=== PATIENT | female | born 1985 | race Caucasian/White ===

== ENCOUNTER 2020-03-04 02:12 | Observation (INO) ==
[2020-03-04] MEDS ORDERED: GI Cocktail 40 ML EACH PO ONE (02:22)
[2020-03-04 02:49] LABS: Bilirubin,Urine Negative (Negative); Blood,Urine Negative (Negative); Clarity,Urine Clear (Clear); Color,Urine Light-Yellow (Yellow); Glucose,Urine (UA) Normal (Normal); Ketones,Urine Negative (Negative); Leukocyte Esterase,Urine Negative (Negative); Nitrite,Urine Negative (Negative); PH,Urine 5.5 pH Units (5.0-8.0); Protein,Urine Negative (Neg-Trace); Specific Gravity,Urine 1.028 (1.010-1.025); Urobilinogen,Urine Normal (Normal)
[2020-03-04 03:01] LABS: Basophils # 0.1 K/mcL (0.0-0.2); Eosinophils # 0.5 K/mcL (0.0-0.6); Eosinophils % 4.9 %; Hematocrit 39.1 % (35.3-44.9); Hemoglobin 12.3 g/dL (11.5-15.4); Immature Granulocytes % 0.3 % (0-4); Lymphocytes % 21.3 %; Mean Corpuscular HGB Conc 31.5 g/dL (31.6-35.5); Mean Corpuscular Hemoglobin 27.6 pg (28.0-33.3); Mean Corpuscular Volume 87.9 fL (83.0-100.0); Mean Platelet Volume 9.3 fL (9.4-12.4); Monocytes # 0.7 K/mcL (0.0-1.3); Monocytes % 7.7 %; Neutrophils # 6.1 K/mcL (1.6-8.9); Platelet Count 330 K/mcL (140-400); Red Blood Count 4.45 M/mcL (3.82-4.97); Segmented Neutrophils % 64.8 %; White Blood Count 9.4 K/mcL (4.3-11.1)
[2020-03-04] MEDS ORDERED: Ondansetron 4 MG/2 ML VIAL IVP ONE ×2 (03:09→06:26)
[2020-03-04 03:23] LABS: Alanine Aminotransferase 14 Units/L (7-52); Albumin 4.4 g/dL (3.5-5.7); Albumin/Globulin Ratio 1.8 (1.1-2.2); Alkaline Phosphatase 41 Units/L (34-104); Amylase 27 Units/L (29-103); Aspartate Amino Transferase 11 Units/L (13-39); BUN/Creatinine Ratio 27 (6-26); Bilirubin,Direct 0.1 mg/dL (0.0-0.2); Bilirubin,Indirect 0.2 mg/dL (0.0-1.0); Bilirubin,Total 0.3 mg/dL (0.3-1.0); Blood Urea Nitrogen 20 mg/dL (6-20); Calcium 9.7 mg/dL (8.6-10.3); Carbon Dioxide 24 mEq/L (23-29); Chloride 108 mEq/L (98-107); Globulin 2.5 g/dL (2.4-3.5); Glucose 103 mg/dL (70-105); Lipase 16 Units/L (11-82); Osmolality,Calculated 291 (280-300); Potassium 3.7 mEq/L (3.5-5.1); Sodium 139 mEq/L (136-145); Total Protein 6.9 g/dL (6.4-8.9); Troponin I < 0.03 ng/mL (< 0.04); eGFR For African Americans > 60 (> 60); eGFR For Non-African Americans > 60 (> 60)
[2020-03-04] MEDS ORDERED: *HR* FentaNYL (PF) 100 MCG/2 ML VIAL IVP ONE (03:28)
[2020-03-04] MEDS ORDERED: Morphine Sulfate 2 MG/ML SYRINGE IVP ONE (06:26)
[2020-03-04] MEDS ORDERED: 0.9 % Sodium Chloride 1,000 ML ONE (06:35)
[2020-03-04] MEDS: 0.9 % Sodium Chloride 1,000 ML IVC SCH ×4 (06:40→20:33)
[2020-03-04] MEDS ORDERED: Ondansetron 4 MG/2 ML VIAL IVP PRN ×2 (08:25→16:27)
[2020-03-04] MEDS ORDERED: Piperacillin/Tazobactam 3.375 GM in 0.9 % Sodium Chloride Mini Bag 100 ML IVPB SCH (08:26)
[2020-03-04] MEDS ORDERED: Loratadine 10 MG TABLET PO ONE (08:54)
[2020-03-04] MEDS ORDERED: Ipratropium/Albuterol Neb 3 ML IH ONE (08:57)
[2020-03-04] MEDS ORDERED: Pantoprazole 40 MG VIAL IVP SCH (09:00)
[2020-03-04 10:28] LABS: Adenovirus Not Detected (Not Detect); Bordetella Pertussis Not Detected (Not Detect); Chlamydophila pneumoniae Not Detected (Not Detect); Coronavirus 229E Not Detected (Not Detect); Coronavirus HKU1 Not Detected (Not Detect); Coronavirus NL63 Not Detected (Not Detect); Coronavirus OC43 Not Detected (Not Detect); Human Metapneumovirus Not Detected (Not Detect); Human Rhinovirus/Enterovirus Not Detected (Not Detect); Influenza A Subtype 2009 H1 Not Detected (Not Detect); Influenza B Not Detected (Not Detect); Mycoplasma pneumoniae Not Detected (Not Detect); Parainfluenza Virus 1 Not Detected (Not Detect); Parainfluenza Virus 2 Not Detected (Not Detect); Parainfluenza Virus 3 Not Detected (Not Detect); Parainfluenza Virus 4 Not Detected (Not Detect); Respiratory Syncytial Virus Not Detected (Not Detect); SARS-CoV-2 Not Detected (Not Detect)
[2020-03-04] MEDS ORDERED: Ondansetron 4 MG/2 ML VIAL ONE (15:26)
[2020-03-04] MEDS ORDERED: Lidocaine -MPF 2% 2 ML VIAL ONE (15:26)
[2020-03-04] MEDS ORDERED: *HR* FentaNYL (PF) 100 MCG/2 ML VIAL ONE (15:26)
[2020-03-04] MEDS ORDERED: Dexamethasone 4 MG/ML VIAL ONE (15:26)
[2020-03-04] MEDS ORDERED: *HR* Midazolam HCl 2 MG/2 ML VIAL ONE (15:26)
[2020-03-04] MEDS ORDERED: *HR* Propofol 200 MG/20 ML VIAL IVP ONE (15:26)
[2020-03-04] MEDS ORDERED: *HR* Rocuronium Bromide 50 MG/5 ML VIAL ONE (15:26)
[2020-03-04] MEDS ORDERED: *HR* HYDROMORPHONE 2 MG/ML VIAL ONE (15:41)
[2020-03-04] MEDS ORDERED: Ketorolac 30 MG/ML VIAL ONE (16:01)
[2020-03-04] MEDS ORDERED: Albuterol 2.5 MG/3 ML NEBULIZER ONE (16:25)
[2020-03-04] MEDS ORDERED: Promethazine 6.25 MG in Water for inj. (sterile) 20 ML IVPB PRN (16:27)
[2020-03-04] MEDS ORDERED: Albuterol 2.5 MG/3 ML NEBULIZER IH PRN (16:27)
[2020-03-04] MEDS ORDERED: *HR* HYDROmorphone PF 0.5 MG/0.5 ML SYRINGE IVP PRN (16:27)
[2020-03-04] MEDS: Piperacillin/Tazobactam 3.375 GM in 0.9 % Sodium Chloride Mini Bag 100 ML IVPB SCH (17:43)
[2020-03-04] MEDS: Ondansetron 4 MG/2 ML VIAL IVP PRN (19:53)
[2020-03-05] MEDS: Ondansetron 4 MG/2 ML VIAL IVP PRN (00:16)
[2020-03-05] MEDS: Piperacillin/Tazobactam 3.375 GM in 0.9 % Sodium Chloride Mini Bag 100 ML IVPB SCH ×2 (00:30→08:25)
[2020-03-05] MEDS ORDERED: Ondansetron 4 MG/2 ML VIAL IVP PRN (00:58)
[2020-03-05] MEDS: 0.9 % Sodium Chloride 1,000 ML IVC SCH (06:16)
[2020-03-05 06:56] VITALS: BP 117/66
[2020-03-05 08:02] LABS: Hematocrit 35.2 % (35.3-44.9); Hemoglobin 11.1 g/dL (11.5-15.4); Mean Corpuscular HGB Conc 31.5 g/dL (31.6-35.5); Mean Corpuscular Hemoglobin 27.5 pg (28.0-33.3); Mean Corpuscular Volume 87.1 fL (83.0-100.0); Mean Platelet Volume 9.5 fL (9.4-12.4); Platelet Count 303 K/mcL (140-400); Red Blood Count 4.04 M/mcL (3.82-4.97); Red Cell Distribution Width 12.8 % (11.5-14.5)
[2020-03-05 08:05] LABS: White Blood Count 15.9 K/mcL (4.3-11.1)
[2020-03-05] MEDS ORDERED: Pantoprazole 40 MG VIAL IVP SCH (09:00)
== END 2020-03-05 10:26 | disposition home or self-care (01) ==
LOC: 3BNU 02:12 → EMEROOARM 02:12 → 3BNU 11:13
PROVIDERS: ADMIT Surgery; ATTEND Surgery

== ENCOUNTER → 2020-10-10 17:22 | Observation (INO) ==
[2020-10-10 16:23] LABS: Basophils # 0.1 K/mcL (0.0-0.2); Basophils % 0.3 %; Eosinophils # 0.4 K/mcL (0.0-0.6); Eosinophils % 2.6 %; Hematocrit 32.2 % (35.3-44.9); Hemoglobin 10.6 g/dL (11.5-15.4); Immature Granulocytes % 0.7 % (0-4); Lymphocytes # 1.7 K/mcL (0.6-4.6); Lymphocytes % 11.1 %; Mean Corpuscular HGB Conc 32.9 g/dL (31.6-35.5); Mean Corpuscular Hemoglobin 29.4 pg (28.0-33.3); Mean Corpuscular Volume 89.4 fL (83.0-100.0); Mean Platelet Volume 9.5 fL (9.4-12.4); Monocytes # 1.1 K/mcL (0.0-1.3); Monocytes % 7.1 %; Neutrophils # 11.7 K/mcL (1.6-8.9); Platelet Count 273 K/mcL (140-400); Red Cell Distribution Width 13.2 % (11.5-14.5); Segmented Neutrophils % 78.2 %; White Blood Count 14.9 K/mcL (4.3-11.1)
[2020-10-10 16:28] LABS: Protein/Creatinine Ratio,Urine 0.17 mg/mg (0.00-0.20)
[2020-10-10 16:34] LABS: Bacteria,Urine Few per hpf (None-Few); Bilirubin,Urine Negative (Negative); Blood,Urine Negative (Negative); Clarity,Urine Turbid (Clear); Color,Urine Yellow (Yellow); Glucose,Urine (UA) Normal (Normal); Ketones,Urine Trace mg/dL (Negative); Leukocyte Esterase,Urine Large (Negative); Mucus,Urine Few per lpf (None-Few); Nitrite,Urine Negative (Negative); PH,Urine 5.5 pH Units (5.0-8.0); Protein,Urine 30 mg/dL (Neg-Trace); Specific Gravity,Urine 1.029 (1.010-1.025); Squamous Epithelial Cell,Urine Many per hpf (None-Few); Urobilinogen,Urine Normal (Normal); WBC,Urine 30-50 per hpf (0-3)
[2020-10-10 16:45] LABS: Alanine Aminotransferase 13 Units/L (7-52); Aspartate Amino Transferase 11 Units/L (13-39); BUN/Creatinine Ratio 22 (6-26); Blood Urea Nitrogen 11 mg/dL (6-20); Lactate Dehydrogenase 134 Units/L (140-271); Uric Acid 4.5 mg/dL (2.3-7.6); eGFR For African Americans > 60 (> 60); eGFR For Non-African Americans > 60 (> 60)
== END | disposition home or self-care (01) ==
LOC: 1NENULAB
PROVIDERS: ADMIT Obstetrics & Gynecology; ATTEND Obstetrics & Gynecology

== ENCOUNTER → 2020-11-12 11:30 | Observation (INO) ==
[~2020-11-12 11:30] MED LIST: Betamethasone Acet/SodPhos 30 MG/5 ML VIAL IM SCH
== END | disposition home or self-care (01) ==
LOC: 1NENULAB
PROVIDERS: ADMIT Student in an Organized Health Care Education/Training Program; ATTEND Student in an Organized Health Care Education/Training Program

== ENCOUNTER → 2020-11-13 12:05 | Observation (INO) ==
[2020-11-13 12:13] VITALS: BP 135/81; PULSE 92; TEMP 98
== END | disposition home or self-care (01) ==
LOC: 1NENULAB
PROVIDERS: ADMIT Registered Nurse; ATTEND Registered Nurse

== ENCOUNTER → 2020-11-15 23:52 | Observation (INO) ==
[2020-11-15 20:37] LABS: Basophils # 0.1 K/mcL (0.0-0.2); Basophils % 0.3 %; Eosinophils % 0.2 %; Hematocrit 30.9 % (35.3-44.9); Hemoglobin 9.9 g/dL (11.5-15.4); Immature Granulocytes % 4.8 % (0-4); Lymphocytes # 1.7 K/mcL (0.6-4.6); Lymphocytes % 9.4 %; Mean Corpuscular Hemoglobin 28.2 pg (28.0-33.3); Mean Platelet Volume 9.7 fL (9.4-12.4); Monocytes # 1.6 K/mcL (0.0-1.3); Monocytes % 9.1 %; Neutrophils # 13.4 K/mcL (1.6-8.9); Nucleated Red Blood Cells 0.3 /100 WBC (0); Platelet Count 297 K/mcL (140-400); Red Blood Count 3.51 M/mcL (3.82-4.97); Red Cell Distribution Width 13.4 % (11.5-14.5); Segmented Neutrophils % 76.2 %; White Blood Count 17.6 K/mcL (4.3-11.1)
[2020-11-15 20:46] LABS: Protein/Creatinine Ratio,Urine 0.17 mg/mg (0.00-0.20)
[2020-11-15 20:51] LABS: Bacteria,Urine Few per hpf (None-Few); Bilirubin,Urine Negative (Negative); Blood,Urine Negative (Negative); Clarity,Urine Clear (Clear); Color,Urine Light-Yellow (Yellow); Glucose,Urine (UA) Normal (Normal); Ketones,Urine Negative (Negative); Leukocyte Esterase,Urine Moderate (Negative); Mucus,Urine Few per lpf (None-Few); Nitrite,Urine Negative (Negative); Protein,Urine 30 mg/dL (Neg-Trace); RBC,Urine 0-3 per hpf (0-3); Specific Gravity,Urine > 1.030 (1.010-1.025); Squamous Epithelial Cell,Urine Few per hpf (None-Few); Urobilinogen,Urine Normal (Normal)
[2020-11-15 20:58] LABS: Alanine Aminotransferase 12 Units/L (7-52); Aspartate Amino Transferase 11 Units/L (13-39); BUN/Creatinine Ratio 25 (6-26); Blood Urea Nitrogen 15 mg/dL (6-20); Lactate Dehydrogenase 161 Units/L (140-271); Uric Acid 4.9 mg/dL (2.3-7.6); eGFR For African Americans > 60 (> 60); eGFR For Non-African Americans > 60 (> 60)
[~2020-11-15 23:52] MED LIST changes: -Betamethasone Acet/SodPhos 30 MG/5 ML VIAL IM SCH; +Ringers Solution, Lactated 1,000 ML IVC ONE; +Ringers Solution, Lactated 1,000 ML ONE
== END | disposition home or self-care (01) ==
LOC: 1NENULAB
PROVIDERS: ADMIT Advanced Practice Midwife; ATTEND Advanced Practice Midwife

== ENCOUNTER 2020-12-08 13:12 | Inpatient (IN) ==
[~2020-12-08 13:12] MED LIST changes: +*HR* Nalbuphine 10 MG/ML AMPUL IV PRN; +Azithromycin 500 MG in 0.9 % Sodium Chloride 250 ML IVPB PRN; +Famotidine 20 MG/2 ML VIAL IVP PRN; +Lidocaine 1% 20 ML MDV INFILT PRN; +Metoclopramide 10 MG/2 ML VIAL IVP PRN; +Naloxone 0.4 MG/ML INJ IVP PRN; +Ondansetron 4 MG/2 ML VIAL IVP PRN; -Ringers Solution, Lactated 1,000 ML IVC ONE; -Ringers Solution, Lactated 1,000 ML ONE
[2020-12-08] MEDS ORDERED: Ringers Solution, Lactated 1,000 ML IVC SCH (13:15)
[2020-12-08] MEDS ORDERED: NIFEdipine Immed Rel 10 MG CAPSULE PO ONE (13:16)
[2020-12-08] MEDS ORDERED: NIFEdipine Immed Rel 10 MG CAPSULE PO PRN (13:16)
[2020-12-08 13:55] LABS: Basophils % 0.4 %; Eosinophils # 0.2 K/mcL (0.0-0.6); Eosinophils % 1.4 %; Hematocrit 33.2 % (35.3-44.9); Hemoglobin 10.2 g/dL (11.5-15.4); Immature Granulocytes % 1.3 % (0-4); Lymphocytes # 1.5 K/mcL (0.6-4.6); Lymphocytes % 13.4 %; Mean Corpuscular HGB Conc 30.7 g/dL (31.6-35.5); Mean Corpuscular Hemoglobin 26.7 pg (28.0-33.3); Mean Corpuscular Volume 86.9 fL (83.0-100.0); Mean Platelet Volume 9.5 fL (9.4-12.4); Monocytes # 0.8 K/mcL (0.0-1.3); Monocytes % 6.9 %; Neutrophils # 8.3 K/mcL (1.6-8.9); Nucleated Red Blood Cells 0.2 /100 WBC (0); Platelet Count 286 K/mcL (140-400); Red Blood Count 3.82 M/mcL (3.82-4.97); Red Cell Distribution Width 14.2 % (11.5-14.5); Segmented Neutrophils % 76.6 %; White Blood Count 10.8 K/mcL (4.3-11.1)
[2020-12-08] MEDS ORDERED: FLU Vac QV 21-22 (6Month+)/PF 0.5 ML SYRINGE IM ONE (14:22)
[2020-12-08] MEDS ORDERED: Penicillin G Potassium 5,000,000 UNIT in 0.9 % Sodium Chloride Mini Bag 100 ML IVPB ONE (14:25)
[2020-12-08 14:32] LABS: Amphetamine Screen,Urine Negative ng/mL (Cutoff=1000); Barbiturate Screen,Urine Negative ng/mL (Cutoff=200); Benzodiazepines Screen,Urine Negative ng/mL (Cutoff=200); Cannabinoid Screen,Urine Negative ng/mL (Cutoff = 50); Cocaine Screen,Urine Negative ng/mL (Cutoff= 300); Creatinine,Urine 267 mg/dL; Opiate Screen,Urine Negative ng/mL (Cutoff=300); Phencyclidine Screen,Urine Negative ng/mL (Cutoff=25); Protein/Creatinine Ratio,Urine 0.61 mg/mg (0.00-0.20)
[2020-12-08] MEDS ORDERED: miSOPROStoL 25 MCG TABLET PO SCH (16:00)
[2020-12-08 16:14] LABS: Influenza A PCR Negative (Negative); Influenza B PCR Negative (Negative); Resp. Syncytial Virus PCR Negative (Negative)
[2020-12-08 16:15] LABS: SARS-CoV-2 by PCR (In House) Negative (Negative)
[2020-12-08] MEDS ORDERED: Acetaminophen 325 MG TABLET PO ONE (17:11)
[2020-12-08 17:18] LABS: Alanine Aminotransferase 11 Units/L (7-52); Aspartate Amino Transferase 15 Units/L (13-39); BUN/Creatinine Ratio 25 (6-26); Blood Urea Nitrogen 16 mg/dL (6-20); Lactate Dehydrogenase 227 Units/L (140-271); Uric Acid 6.1 mg/dL (2.3-7.6); eGFR For African Americans > 60 (> 60); eGFR For Non-African Americans > 60 (> 60)
[2020-12-08] MEDS ORDERED: Penicillin G Potassium 2,500,000 UNIT in 0.9 % Sodium Chloride 100 ML IVPB SCH (18:30)
[2020-12-08] MEDS ORDERED: Oxytocin 20 units/ LR 1000 mL 20 UNIT/1,000 ML BAG IVC SCH (19:45)
[2020-12-08] MEDS ORDERED: *HR* FentaNYL (PF) 100 MCG/2 ML VIAL EP ONE (22:04)
[2020-12-08] MEDS ORDERED: EPHEDrine 50 MG/ML VIAL IVP PRN (22:04)
[2020-12-08] MEDS ORDERED: Ropivacaine/PF 0.2% 20 ML VIAL EP ONE (22:04)
[2020-12-08] MEDS ORDERED: Ropivacaine/PF 0.2% 20 ML VIAL ONE (22:09)
[2020-12-08] MEDS ORDERED: *HR* FentaNYL (PF) 100 MCG/2 ML VIAL ONE (22:09)
[2020-12-08] MEDS ORDERED: Epidural Premix (fent/bupiv) 110 ML EP SCH (22:15)
[2020-12-08] MEDS ORDERED: *HR* Labetalol 20 MG/4 ML SYRINGE IVP ONE (22:53)
[2020-12-09] MEDS ORDERED: Oxytocin 20 units/ LR 1000 mL 20 UNIT/1,000 ML BAG IVC SCH (04:11)
[2020-12-09] MEDS ORDERED: Lanolin 7 G OINT...G. TP PRN (04:11)
[2020-12-09] MEDS ORDERED: Measles/Mumps/Rubella Vacc 0.5 ML VIAL SQ PRN (04:11)
[2020-12-09] MEDS ORDERED: Benzocaine/Menthol 56 GM AEROSOL SPRAY TP PRN (04:11)
[2020-12-09] MEDS ORDERED: Ondansetron ODT 4 MG TAB.RAPDIS SL PRN (04:11)
[2020-12-09] MEDS: Ibuprofen 600 MG TABLET PO SCH ×3 (04:21→18:17)
[2020-12-09] MEDS: Acetaminophen 325 MG TABLET PO SCH ×3 (07:21→21:16)
[2020-12-09] MEDS: Loratadine 10 MG TABLET PO SCH (08:03)
[2020-12-09] MEDS: Budesonide/Formoterol 160/4.5 1 PUFF INH IH SCH (08:04)
[2020-12-09] MEDS: Prenatal Vit/FA 1 EACH TABLET PO SCH (12:12)
[2020-12-10] MEDS: Ibuprofen 600 MG TABLET PO SCH ×4 (01:28→20:39)
[2020-12-10] MEDS: Acetaminophen 325 MG TABLET PO SCH ×3 (04:21→17:41)
[2020-12-10 04:57] LABS: Basophils % 0.4 %; Eosinophils # 0.2 K/mcL (0.0-0.6); Eosinophils % 1.5 %; Hematocrit 29.1 % (35.3-44.9); Hemoglobin 9.1 g/dL (11.5-15.4); Immature Granulocytes % 0.8 % (0-4); Lymphocytes # 1.8 K/mcL (0.6-4.6); Lymphocytes % 15.9 %; Mean Corpuscular HGB Conc 31.3 g/dL (31.6-35.5); Mean Corpuscular Volume 86.4 fL (83.0-100.0); Mean Platelet Volume 9.3 fL (9.4-12.4); Monocytes # 0.7 K/mcL (0.0-1.3); Monocytes % 6.6 %; Neutrophils # 8.2 K/mcL (1.6-8.9); Platelet Count 214 K/mcL (140-400); Red Blood Count 3.37 M/mcL (3.82-4.97); Red Cell Distribution Width 14.6 % (11.5-14.5); Segmented Neutrophils % 74.8 %
[2020-12-10] MEDS: Prenatal Vit/FA 1 EACH TABLET PO SCH (09:07)
[2020-12-10] MEDS: Loratadine 10 MG TABLET PO SCH (09:07)
[2020-12-10] MEDS: Budesonide/Formoterol 160/4.5 1 PUFF INH IH SCH (10:00)
[2020-12-10] MEDS ORDERED: NIFEdipine XL (24 HR) 30 MG TAB.ER.24 PO SCH (12:30)
[2020-12-11] MEDS: Ibuprofen 600 MG TABLET PO SCH (04:03)
[2020-12-11] MEDS: Loratadine 10 MG TABLET PO SCH (08:16)
[2020-12-11] MEDS: Prenatal Vit/FA 1 EACH TABLET PO SCH (08:16)
[2020-12-11 08:34] VITALS: PULSE 97
[2020-12-11 08:41] VITALS: BP 139/85; TEMP 98.5; O2SAT 98
[2020-12-11] MEDS ORDERED: FLU Vac QV 21-22 (6Month+)/PF 0.5 ML SYRINGE IM ONE (13:15)
== END 2020-12-11 14:43 | disposition home or self-care (01) | DRG 807 ==
LOC: 1NENULAB → SUATTDRO 13:12 → 1NENULAB 16:13 → 1NENUOBS 12-09 04:06
PROVIDERS: ADMIT Obstetrics & Gynecology; ATTEND Internal Medicine

== ENCOUNTER 2020-12-13 13:56 | Observation (INO) ==
[2020-12-13] MEDS ORDERED: 0.9 % Sodium Chloride 1,000 ML IVC ONE (14:23)
[2020-12-13] MEDS ORDERED: *HR* Labetalol 20 MG/4 ML SYRINGE IVP ONE (14:25)
[2020-12-13 15:20] LABS: Basophils % 0.5 %; Eosinophils # 0.3 K/mcL (0.0-0.6); Eosinophils % 3.1 %; Hematocrit 30.9 % (35.3-44.9); Hemoglobin 9.4 g/dL (11.5-15.4); Immature Granulocytes % 2.4 % (0-4); Lymphocytes # 1.4 K/mcL (0.6-4.6); Mean Corpuscular HGB Conc 30.4 g/dL (31.6-35.5); Mean Corpuscular Hemoglobin 26.8 pg (28.0-33.3); Mean Platelet Volume 9.3 fL (9.4-12.4); Monocytes # 0.6 K/mcL (0.0-1.3); Neutrophils # 6.1 K/mcL (1.6-8.9); Platelet Count 248 K/mcL (140-400); Red Blood Count 3.51 M/mcL (3.82-4.97); Red Cell Distribution Width 15.3 % (11.5-14.5); White Blood Count 8.6 K/mcL (4.3-11.1)
[2020-12-13 15:23] LABS: Bacteria,Urine Few per hpf (None-Few); Bilirubin,Urine Negative (Negative); Blood,Urine Large (Negative); Clarity,Urine Clear (Clear); Color,Urine Yellow (Yellow); Glucose,Urine (UA) Normal (Normal); Hyaline Casts,Urine Few per lpf (None Seen); Ketones,Urine 10 mg/dL (Negative); Leukocyte Esterase,Urine Moderate (Negative); Mucus,Urine Few per lpf (None-Few); Nitrite,Urine Negative (Negative); PH,Urine 5.5 pH Units (5.0-8.0); Protein,Urine 70 mg/dL (Neg-Trace); RBC,Urine 15-30 per hpf (0-3); Specific Gravity,Urine 1.025 (1.010-1.025); Squamous Epithelial Cell,Urine Few per hpf (None-Few); Urobilinogen,Urine Normal (Normal); WBC,Urine 15-30 per hpf (0-3)
[2020-12-13 15:28] LABS: Prothrombin Time 11.3 Seconds (9.4-12.1)
[2020-12-13 15:31] LABS: Activated Partial Thrombo Time 27.3 Seconds (26.0-36.0)
[2020-12-13 15:40] LABS: Alanine Aminotransferase 37 Units/L (7-52); Albumin 3.5 g/dL (3.5-5.7); Albumin/Globulin Ratio 1.3 (1.1-2.2); Alkaline Phosphatase 53 Units/L (34-104); Aspartate Amino Transferase 25 Units/L (13-39); BUN/Creatinine Ratio 18 (6-26); Bilirubin,Indirect 0.3 mg/dL (0.0-1.0); Bilirubin,Total 0.3 mg/dL (0.3-1.0); Blood Urea Nitrogen 13 mg/dL (6-20); Calcium 8.8 mg/dL (8.6-10.3); Carbon Dioxide 22 mEq/L (23-29); Chloride 110 mEq/L (98-107); Globulin 2.8 g/dL (2.4-3.5); Glucose 92 mg/dL (70-105); Magnesium 1.7 mg/dL (1.6-2.6); Osmolality,Calculated 292 (280-300); Potassium 3.6 mEq/L (3.5-5.1); Sodium 141 mEq/L (136-145); Total Protein 6.3 g/dL (6.4-8.9); eGFR For African Americans > 60 (> 60); eGFR For Non-African Americans > 60 (> 60)
[2020-12-13] MEDS ORDERED: Ringers Solution, Lactated 1,000 ML ONE (17:52)
[2020-12-13] MEDS: Magnesium Sulf 20 gm/SW 500mL 20 GM/500 ML IV.SOLN IVC SCH (18:10)
[2020-12-13] MEDS ORDERED: Ondansetron ODT 4 MG TAB.RAPDIS SL PRN (18:13)
[2020-12-13] MEDS ORDERED: Calcium Gluconate 1,000 MG/10 ML VIAL ONE (18:15)
[2020-12-13] MEDS: Acetaminophen 325 MG TABLET PO SCH (18:44)
[2020-12-13] MEDS: Ibuprofen 600 MG TABLET PO SCH (19:48)
[2020-12-14] MEDS: Acetaminophen 325 MG TABLET PO SCH (02:12)
[2020-12-14] MEDS: Magnesium Sulf 20 gm/SW 500mL 20 GM/500 ML IV.SOLN IVC SCH ×2 (04:27→14:31)
[2020-12-14 05:48] LABS: Basophils % 0.5 %; Eosinophils # 0.2 K/mcL (0.0-0.6); Eosinophils % 2.5 %; Hematocrit 30.4 % (35.3-44.9); Hemoglobin 9.2 g/dL (11.5-15.4); Immature Granulocytes % 3.8 % (0-4); Lymphocytes # 1.4 K/mcL (0.6-4.6); Lymphocytes % 18.3 %; Mean Corpuscular HGB Conc 30.3 g/dL (31.6-35.5); Mean Corpuscular Hemoglobin 26.7 pg (28.0-33.3); Mean Corpuscular Volume 88.4 fL (83.0-100.0); Monocytes # 0.6 K/mcL (0.0-1.3); Monocytes % 7.4 %; Neutrophils # 5.2 K/mcL (1.6-8.9); Platelet Count 219 K/mcL (140-400); Red Blood Count 3.44 M/mcL (3.82-4.97); Red Cell Distribution Width 15.4 % (11.5-14.5); Segmented Neutrophils % 67.5 %; White Blood Count 7.7 K/mcL (4.3-11.1)
[2020-12-14] MEDS ORDERED: hydrALAZINE 10 MG TABLET PO ONE (06:08)
[2020-12-14 06:11] LABS: Alanine Aminotransferase 31 Units/L (7-52); Aspartate Amino Transferase 17 Units/L (13-39); BUN/Creatinine Ratio 14 (6-26); Blood Urea Nitrogen 9 mg/dL (6-20); Lactate Dehydrogenase 223 Units/L (140-271); Uric Acid 6.8 mg/dL (2.3-7.6); eGFR For African Americans > 60 (> 60); eGFR For Non-African Americans > 60 (> 60)
[2020-12-14] MEDS ORDERED: Ringers Solution, Lactated 1,000 ML ONE (07:07)
[2020-12-14] MEDS: Loratadine 10 MG TABLET PO SCH (08:30)
[2020-12-14] MEDS: Multivit/Ca/Min/Fe/FA 1 TAB TABLET PO SCH (08:30)
[2020-12-14] MEDS: Ibuprofen 600 MG TABLET PO SCH ×2 (08:30→14:34)
[2020-12-14] MEDS: Budesonide/Formoterol 160/4.5 1 PUFF INH IH SCH ×2 (08:32→12:19)
[2020-12-14 10:45] LABS: Protein/Creatinine Ratio,Urine 1.48 mg/mg (0.00-0.20)
[2020-12-15] MEDS: Ibuprofen 600 MG TABLET PO SCH (01:19)
[2020-12-15 03:34] VITALS: O2SAT 98
[2020-12-15] MEDS: Multivit/Ca/Min/Fe/FA 1 TAB TABLET PO SCH (08:18)
[2020-12-15] MEDS: Loratadine 10 MG TABLET PO SCH (08:18)
[2020-12-15 08:36] VITALS: BP 139/88; PULSE 76; TEMP 98.5
== END 2020-12-15 10:47 | disposition home or self-care (01) ==
LOC: EMEROOARM 13:56 → 1NENUOBS 13:56
PROVIDERS: ADMIT Obstetrics & Gynecology; ATTEND Obstetrics & Gynecology

== ENCOUNTER 2021-08-10 21:59 | Observation (INO) ==
[2021-08-10 15:17] LABS: Basophils # 0.1 K/mcL (0.0-0.2); Basophils % 0.9 %; Eosinophils # 0.5 K/mcL (0.0-0.6); Eosinophils % 5.7 %; Hematocrit 34.3 % (35.3-44.9); Hemoglobin 10.5 g/dL (11.5-15.4); Immature Granulocytes % 0.3 % (0-4); Lymphocytes # 1.6 K/mcL (0.6-4.6); Lymphocytes % 19.8 %; Mean Corpuscular HGB Conc 30.6 g/dL (31.6-35.5); Mean Corpuscular Hemoglobin 26.4 pg (28.0-33.3); Mean Corpuscular Volume 86.2 fL (83.0-100.0); Mean Platelet Volume 9.5 fL (9.4-12.4); Monocytes # 0.6 K/mcL (0.0-1.3); Monocytes % 7.1 %; Neutrophils # 5.3 K/mcL (1.6-8.9); Platelet Count 327 K/mcL (140-400); Red Blood Count 3.98 M/mcL (3.82-4.97); Red Cell Distribution Width 12.9 % (11.5-14.5); Segmented Neutrophils % 66.2 %; White Blood Count 7.9 K/mcL (4.3-11.1)
[~2021-08-10 21:59] MED LIST changes: +*HR* Belladonna Alkaloids/Opium 30 MG RECTAL SUPPOSITORY RC ONE; +*HR* FentaNYL (PF) 100 MCG/2 ML VIAL ONE; +*HR* HYDROMORPHONE 2 MG/ML VIAL ONE; +*HR* HYDROcodone/Acet 5/325 mg TABLET PO ONE; +*HR* HYDROmorphone (PF) 1 MG/ML SYRINGE IVP PRN; +*HR* HYDROmorphone 2 MG TABLET PO PRN; +*HR* Labetalol 20 MG/4 ML SYRINGE IVP PRN; +*HR* Midazolam HCl 2 MG/2 ML VIAL ONE; -*HR* Nalbuphine 10 MG/ML AMPUL IV PRN; +*HR* OxyCODONE Immed Rel 5 MG TABLET PO PRN; +*HR* Propofol 200 MG/20 ML VIAL IVP ONE; +*HR* Rocuronium Bromide 50 MG/5 ML VIAL ONE; +Acetaminophen IV 1,000 MG/100 ML BAG IVPB ONE; -Azithromycin 500 MG in 0.9 % Sodium Chloride 250 ML IVPB PRN; +Bupivacaine/EPI 1:200k 0.25% 50 ML VIAL ONE; +CeFAZolin 2,000 MG/120 ML BAG IVPB ONE; +D5% in Lactated Ringers 1,000 ML IVC SCH; +Famotidine 20 MG/2 ML VIAL IVP ONE; -Famotidine 20 MG/2 ML VIAL IVP PRN; +Famotidine 20 MG/2 ML VIAL ONE; +Ketorolac 30 MG/ML VIAL IVP PRN; +Ketorolac 30 MG/ML VIAL ONE; +Lidocaine -MPF 2% 2 ML VIAL ONE; +Lidocaine -MPF 4% 5 ML AMPUL ONE; -Lidocaine 1% 20 ML MDV INFILT PRN; -Metoclopramide 10 MG/2 ML VIAL IVP PRN; -Naloxone 0.4 MG/ML INJ IVP PRN; +Ondansetron 4 MG/2 ML VIAL ONE; +Pregabalin 75 MG CAPSULE PO ONE; +Promethazine 6.25 MG in Water for inj. (sterile) 20 ML IVPB PRN; +Scopolamine Patch 1.5 MG PATCH.TD72 ONE
[2021-08-11] MEDS ORDERED: *HR* HYDROcodone/Acet 5/325 mg TABLET PO PRN (00:39)
[2021-08-11 06:28] VITALS: BP 135/77; TEMP 97.8
[2021-08-11] MEDS ORDERED: Acetaminophen 325 MG TABLET PO PRN (07:59)
[2021-08-11 09:17] VITALS: PULSE 75; O2SAT 95
== END 2021-08-11 10:10 | disposition home or self-care (01) ==
LOC: 1NENUOBS
PROVIDERS: ADMIT Obstetrics & Gynecology; ATTEND Obstetrics & Gynecology